=== PATIENT | female | born 1970 | race Caucasian/White ===

== ENCOUNTER → 2016-08-09 | Outpatient (CLI) | payer OTHER | LOC: EMI 08:46 | DX: M54.16 Radiculopathy, lumbar region (principal); R51 Headache; M51.36 Other intervertebral disc degeneration, lumbar region; M51.37 Other intervertebral disc degeneration, lumbosacral region | CPT/HCPCS: 70551; 72148 ==

== ENCOUNTER → 2020-08-01 | Outpatient (CLI) | payer OTHER ==
[~2020-08-01] MED LIST: ADMELOG100 UNIT/1 SC; ALBUTEROL0.63 MG/3 INH; ALDACTONE50 MG PO; AMOXICILLIN875 MG PO; BECLOMETHASONE INH; BENZONATATE200 MG PO; BROVANA15 MCG/2 M INH; BYDUREON P2 MG/0.65 SC; CALCIUM 600 +1 EAC3 PO; CEFDINIR300 MG PO; CETIRIZINE HCL10 MG PO; CLARITIN10 M2 PO; CLARITIN10 MG PO; CYCLOBENZAPRINE10 MG PO; DITROPAN 5 MG TA5 MG PO; DOCUSATE SODIU100 MG PO; DOXYCYCLINE MO100 MG PO; ECOTRIN81 MG PO; FERROUS GLUCON240 MG PO; FLEXERIL 10 MG10 MG PO; FLONASE 0.05% N16 GM; HUMULIN R500 UNIT/1 SC; HYDROCODONE-CH473 ML PO; HYDROXYZINE HCL10 MG PO; IPRAT-ALBUT 0.5-3 ML INH; ISOSORBIDE MONO30 MG PO; ISOSORBIDE MONO60 MG PO; K-DUR TAB 10 M10 MEQ PO; KENALOG CREAM 015 GM TOP; LANTUS INS100 UTS/M1 SC; LANTUS100 UNIT/1 SC; LASIX20 MG PO; LASIX40 MG PO; LEVAQUIN750 MG PO; LEVEMIR100 UNIT/1 SQ; LEVOCETIRIZINE D5 MG PO; LEVOFLOXACIN750 MG PO; LIPITOR80 MG PO; LOPRESSOR 25 MG25 MG PO; LYRICA100 MG PO; MYCOSTATIN100000 UTS PO; NEURONTIN 300300 MG PO; NITROSTAT0.4 MG SL; NORCO 5-325 TA1 EACH PO; OMEPRAZOLE40 MG PO; OMNICEF 300 MG300 MG PO; PHENERGAN 25 MG25 M1 PO; PREDNISONE 50 M50 MG PO; PREDNISONE10 MG PO; PREDNISONE20 MG PO; PROTONIX40 MG PO; PULMICORT0.5 MG/21 INH; QVAR INHALER INH; QVAR8.7 G1 INH; SINGULAIR10 MG PO; SYMBICORT 16010.2 GM INH; TESSALON PERLE100 MG PO; TRAZODONE HCL100 MG PO; TRAZODONE HCL50 MG PO; TRESIBA100 UNIT/1 SC; ULTRAM50 MG PO; VENTOLIN HFA 66.7 GM INH; VIBRAMYCIN100 MG PO; VITAMIN B-12100 MCG PO; VITAMIN D325 MCG PO; WELLBUTRIN SR100 MG PO; ZOFRAN ODT 4 MG4 MG PO; ZOFRAN ODT 4 MG4 MG SL; ZOFRAN4 MG PO
== END ==
LOC: EXRD 10:45
DX: M79.641 Pain in right hand (principal); M79.642 Pain in left hand
CPT/HCPCS: 73130

== ENCOUNTER → 2020-08-05 | Outpatient (CLI) | payer OTHER | LOC: EXRD 07:56 | DX: K74.60 Unspecified cirrhosis of liver (principal); R93.2 Abnormal findings on diagnostic imaging of liver and biliary tract; Z90.49 Acquired absence of other specified parts of digestive tract | CPT/HCPCS: 76705 ==

== ENCOUNTER → 2020-08-11 | Day surgery (SDC) | payer OTHER | END | disposition home or self-care (01) | LOC: OR 07:37 | PROVIDERS: Internal Medicine Gastroenterology | PROC: 0DJ08ZZ Inspection of Upper Intestinal Tract, Via Natural or Artificial Opening Endoscopic (ICD-10-PCS; principal; 2020-08-11 10:15) | DX: K74.60 Unspecified cirrhosis of liver (principal); I85.10 Secondary esophageal varices without bleeding; K76.6 Portal hypertension; K31.89 Other diseases of stomach and duodenum; K31.819 Angiodysplasia of stomach and duodenum without bleeding; K75.81 Nonalcoholic steatohepatitis (NASH); G89.29 Other chronic pain; I25.10 Atherosclerotic heart disease of native coronary artery without angina pectoris; I10 Essential (primary) hypertension; E78.5 Hyperlipidemia, unspecified; J44.9 Chronic obstructive pulmonary disease, unspecified; E78.00 Pure hypercholesterolemia, unspecified; E11.43 Type 2 diabetes mellitus with diabetic autonomic (poly)neuropathy; K31.84 Gastroparesis; E66.01 Morbid (severe) obesity due to excess calories; Z68.41 Body mass index [BMI] 40.0-44.9, adult; Z87.891 Personal history of nicotine dependence; Z88.1 Allergy status to other antibiotic agents; Z88.2 Allergy status to sulfonamides; Z86.010 Personal history of colon polyps; Z20.822 Contact with and (suspected) exposure to COVID-19; Z79.4 Long term (current) use of insulin; Z79.82 Long term (current) use of aspirin; Z79.891 Long term (current) use of opiate analgesic; Z79.899 Other long term (current) drug therapy | CPT/HCPCS: J2001; J2704; J7040 ==

== ENCOUNTER → 2020-09-01 | Outpatient (CLI) | payer OTHER | LOC: MAMO 14:14 | DX: Z12.31 Encounter for screening mammogram for malignant neoplasm of breast (principal) | CPT/HCPCS: 77063; 77067 ==

== ENCOUNTER 2020-09-03 20:42 | Emergency (ER) | payer OTHER ==
[~2020-09-03 20:42] MED LIST changes: -ALBUTEROL0.63 MG/3 INH; -ALDACTONE50 MG PO; -CEFDINIR300 MG PO; -CETIRIZINE HCL10 MG PO; -CLARITIN10 M2 PO; -CYCLOBENZAPRINE10 MG PO; -DOCUSATE SODIU100 MG PO; -DOXYCYCLINE MO100 MG PO; -FERROUS GLUCON240 MG PO; -HUMULIN R500 UNIT/1 SC; -ISOSORBIDE MONO30 MG PO; -ISOSORBIDE MONO60 MG PO; -KENALOG CREAM 015 GM TOP; -LANTUS INS100 UTS/M1 SC; -LASIX20 MG PO; -LEVOFLOXACIN750 MG PO; -LOPRESSOR 25 MG25 MG PO; -LYRICA100 MG PO; -OMNICEF 300 MG300 MG PO; -PREDNISONE 50 M50 MG PO; -SYMBICORT 16010.2 GM INH; -TESSALON PERLE100 MG PO; -TRAZODONE HCL50 MG PO; -ULTRAM50 MG PO; -VITAMIN B-12100 MCG PO; -VITAMIN D325 MCG PO; -ZOFRAN ODT 4 MG4 MG PO; -ZOFRAN ODT 4 MG4 MG SL
[2020-09-03 22:16] LABS: RED BLOOD COUNT 4.89 M/UL (4.00-5.10); WHITE BLOOD COUNT 6.8 K/UL (4.5-11.0)
[2020-09-03 22:39] LABS: BUN/CREATININE RATIO 11 (0-10)
[2020-09-04] MEDS ORDERED: DOXYCYCLINE MO100 MG PO (02:46)
[2020-09-04] MEDS ORDERED: PREDNISONE 50 M50 MG PO (02:46)
[2020-09-04] MEDS ORDERED: VENTOLIN HFA 66.7 GM INH (02:46)
== END 2020-09-04 03:00 | disposition home or self-care (01) ==
LOC: ER1 20:42
PROVIDERS: Physician Assistant
DX: J44.0 Chronic obstructive pulmonary disease with (acute) lower respiratory infection (principal); J20.9 Acute bronchitis, unspecified; J44.1 Chronic obstructive pulmonary disease with (acute) exacerbation; E11.9 Type 2 diabetes mellitus without complications; Z20.822 Contact with and (suspected) exposure to COVID-19; Z88.2 Allergy status to sulfonamides; Z88.1 Allergy status to other antibiotic agents; Z90.49 Acquired absence of other specified parts of digestive tract
CPT/HCPCS: 0240U; 36600; 71045; 80053; 81001; 82550; 82553; 82803; 83605; 83735; 83880; 84100; 84484; 85025; 85610; 85652; 85730; 86140; 87040; 87086; 93005; 96374; 99285; J1885; J7030

== ENCOUNTER 2020-11-28 16:38 | Emergency (ER) | payer OTHER ==
[~2020-11-28 16:38] MED LIST changes: +DOXYCYCLINE MO100 MG PO; +PREDNISONE 50 M50 MG PO
[2020-11-28 17:45] LABS: HEMOGLOBIN 9.8 gm/dl (12.3-15.3); RED BLOOD COUNT 4.33 M/UL (4.00-5.10); WHITE BLOOD COUNT 8.2 K/UL (4.5-11.0)
[2020-11-28 18:04] LABS: BUN/CREATININE RATIO 10 (0-10)
[2020-11-28] MEDS ORDERED: ZOFRAN ODT 4 MG4 MG SL (23:32)
[2020-11-28] MEDS ORDERED: OMNICEF 300 MG300 MG PO (23:32)
[2020-11-29 09:36] LABS: ACINETOBACTER BAUMANNII Not Detected (Negative); CANDIDA ALBICANS Not Detected (Negative); CANDIDA KRUSEI Not Detected (Negative); CANDIDA TROPICALIS Not Detected (Negative); ENTEROCOCCUS Not Detected (Negative); HAEMOPHILUS INFLUENZAE Not Detected (Negative); KLEBSIELLA OXYTOCA Not Detected (Negative); KLEBSIELLA PNEUMONIAE Not Detected (Negative); KPC-CARBAPENEM-RESISTANCE GENE Not Detected (Negative); PROTEUS Not Detected (Negative); PSEUDOMONAS AERUGINOSA Not Detected (Negative); SERRATIA MARCESANS Not Detected (Negative); STAPHYLOCOCCUS Not Detected (Negative); STAPHYLOCOCCUS AUREUS Not Detected (Negative); STREP AGALACTIAE (GROUP B) Not Detected (Negative); STREP PYOGENES (GROUP A) Not Detected (Negative); STREPTOCOCCUS Not Detected (Negative); mecA (METHICILLIN RESIST GENE Not Detected (Negative); vanA/B (VANCOMYCIN RESIST GENE Not Detected (Negative)
[2020-11-29 11:21] LABS: ESCHERICHIA COLI DETECTED (Negative)
[2020-11-29] MEDS ORDERED: FERROUS GLUCON240 MG PO (22:43)
[2020-11-29] MEDS ORDERED: CLARITIN10 M2 PO (22:43)
[2020-11-29] MEDS ORDERED: TESSALON PERLE100 MG PO (22:44)
[2020-11-29] MEDS ORDERED: DOCUSATE SODIU100 MG PO (22:50)
[2020-11-29] MEDS ORDERED: FLONASE 0.05% N16 GM (22:55)
[2020-11-29] MEDS ORDERED: SYMBICORT 16010.2 GM INH (22:57)
== END 2020-11-28 23:40 | disposition home or self-care (01) ==
LOC: ER1 16:38
PROVIDERS: Emergency Medicine; Physician Assistant
DX: N12 Tubulo-interstitial nephritis, not specified as acute or chronic (principal); E78.5 Hyperlipidemia, unspecified; E11.9 Type 2 diabetes mellitus without complications; I11.0 Hypertensive heart disease with heart failure; I50.9 Heart failure, unspecified; Z20.822 Contact with and (suspected) exposure to COVID-19
CPT/HCPCS: 0240U; 71045; 80053; 81001; 82550; 82553; 83605; 83690; 83735; 83874; 84484; 85025; 87040; 87086; 87150; 93005; J0696; J7040; Q9967

== ENCOUNTER 2020-11-29 14:22 | Inpatient (IN) | payer OTHER ==
[~2020-11-29] VITALS: Ht 157.5 cm; Wt 101.6 kg
[~2020-11-29 14:22] MED LIST changes: +OMNICEF 300 MG300 MG PO; +ZOFRAN ODT 4 MG4 MG SL
[2020-11-29 16:48] LABS: HEMOGLOBIN 10.2 gm/dl (12.3-15.3); RED BLOOD COUNT 4.63 M/UL (4.00-5.10)
[2020-11-29 17:08] LABS: BUN/CREATININE RATIO 10 (0-10)
[2020-11-29] MEDS ORDERED: FERROUS GLUCON240 MG PO (22:43)
[2020-11-29] MEDS ORDERED: CLARITIN10 M2 PO (22:43)
[2020-11-29] MEDS ORDERED: TESSALON PERLE100 MG PO (22:44)
[2020-11-29] MEDS ORDERED: DOCUSATE SODIU100 MG PO (22:50)
[2020-11-29] MEDS ORDERED: FLONASE 0.05% N16 GM (22:55)
[2020-11-29] MEDS ORDERED: SYMBICORT 16010.2 GM INH (22:57)
[2020-11-30 06:55] LABS: BUN/CREATININE RATIO 9 (0-10)
[2020-11-30] MEDS ORDERED: LYRICA100 MG PO (07:10)
[2020-11-30] MEDS ORDERED: ISOSORBIDE MONO60 MG PO (07:11)
[2020-11-30] MEDS ORDERED: VITAMIN D325 MCG PO (07:12)
[2020-11-30] MEDS ORDERED: LASIX20 MG PO (07:13)
[2020-11-30] MEDS ORDERED: HYDROXYZINE HCL10 MG PO ×2 (07:14→15:11)
[2020-11-30] MEDS ORDERED: CYCLOBENZAPRINE10 MG PO (09:29)
[2020-11-30] MEDS ORDERED: ZOFRAN ODT 4 MG4 MG PO (14:59)
[2020-11-30] MEDS ORDERED: CETIRIZINE HCL10 MG PO (15:00)
[2020-11-30] MEDS ORDERED: CEFDINIR300 MG PO (15:00)
[2020-11-30] MEDS ORDERED: KENALOG CREAM 015 GM TOP (15:21)
[2020-11-30] MEDS ORDERED: ALBUTEROL0.63 MG/3 INH (15:23)
[2020-11-30] MEDS ORDERED: ALDACTONE50 MG PO (17:33)
[2020-11-30] MEDS ORDERED: TRAZODONE HCL50 MG PO (17:34)
[2020-11-30] MEDS ORDERED: VITAMIN B-12100 MCG PO (17:36)
[2020-11-30] MEDS ORDERED: LOPRESSOR 25 MG25 MG PO (22:49)
[2020-11-30] MEDS ORDERED: ULTRAM50 MG PO (22:52)
[2020-11-30] MEDS ORDERED: ISOSORBIDE MONO30 MG PO (22:54)
[2020-11-30] MEDS ORDERED: HUMULIN R500 UNIT/1 SC (23:00)
[2020-12-02 03:56] LABS: HEMOGLOBIN 9.2 gm/dl (12.3-15.3); RED BLOOD COUNT 4.2 M/UL (4.00-5.10); WHITE BLOOD COUNT 4.3 K/UL (4.5-11.0)
[2020-12-02 04:26] LABS: BUN/CREATININE RATIO 7 (0-10)
[2020-12-02] MEDS ORDERED: LEVOFLOXACIN750 MG PO (11:22)
[2020-12-02] MEDS ORDERED: LANTUS INS100 UTS/M1 SC (12:11)
== END 2020-12-02 13:15 | disposition home or self-care (01) | DRG 871 ==
LOC: ER1 14:22 → MED SURG 4 18:18 → CDU 18:18 → MED SURG 4 22:03
PROVIDERS: Nurse Practitioner; ADMIT Internal Medicine
DX: A41.51 Sepsis due to Escherichia coli [E. coli] (principal); J18.9 Pneumonia, unspecified organism; N10 Acute pyelonephritis; J44.0 Chronic obstructive pulmonary disease with (acute) lower respiratory infection; Z68.41 Body mass index [BMI] 40.0-44.9, adult; E11.9 Type 2 diabetes mellitus without complications; K21.9 Gastro-esophageal reflux disease without esophagitis; Z20.822 Contact with and (suspected) exposure to COVID-19; I50.9 Heart failure, unspecified; I11.0 Hypertensive heart disease with heart failure; K74.60 Unspecified cirrhosis of liver; D69.6 Thrombocytopenia, unspecified; I25.10 Atherosclerotic heart disease of native coronary artery without angina pectoris; K76.9 Liver disease, unspecified; E66.01 Morbid (severe) obesity due to excess calories; K31.84 Gastroparesis; Z79.4 Long term (current) use of insulin; Z90.710 Acquired absence of both cervix and uterus; Z90.49 Acquired absence of other specified parts of digestive tract; Z87.891 Personal history of nicotine dependence
CPT/HCPCS: 0240U; 36415; 71045; 80048; 80053; 81001; 82550; 82553; 82962; 83605; 83690; 83735; 83874; 84484; 85025; 87040; 87077; 87086; 87150; 87186; 93005; 94640; 94664; 94760; 96365; 96374; 99284; J0696; J1956; J7040; Q9967; U0002

== ENCOUNTER → 2020-12-27 | Outpatient (CLI) | payer OTHER ==
[~2020-12-27] MED LIST changes: +ALBUTEROL0.63 MG/3 INH; +ALDACTONE50 MG PO; +CEFDINIR300 MG PO; +CETIRIZINE HCL10 MG PO; +CLARITIN10 M2 PO; +CYCLOBENZAPRINE10 MG PO; +DOCUSATE SODIU100 MG PO; +FERROUS GLUCON240 MG PO; +HUMULIN R500 UNIT/1 SC; +ISOSORBIDE MONO30 MG PO; +ISOSORBIDE MONO60 MG PO; +KENALOG CREAM 015 GM TOP; +LANTUS INS100 UTS/M1 SC; +LASIX20 MG PO; +LEVOFLOXACIN750 MG PO; +LOPRESSOR 25 MG25 MG PO; +LYRICA100 MG PO; +SYMBICORT 16010.2 GM INH; +TESSALON PERLE100 MG PO; +TRAZODONE HCL50 MG PO; +ULTRAM50 MG PO; +VITAMIN B-12100 MCG PO; +VITAMIN D325 MCG PO; +ZOFRAN ODT 4 MG4 MG PO
== END ==
LOC: MRI 07:12
DX: K76.9 Liver disease, unspecified (principal)
CPT/HCPCS: 74183; A9577

== ENCOUNTER → 2021-01-20 | Outpatient (CLI) | payer OTHER ==
[2021-01-20 12:46] LABS: HEMOGLOBIN 10.7 gm/dl (12.3-15.3); RED BLOOD COUNT 4.93 M/UL (4.00-5.10); WHITE BLOOD COUNT 6.2 K/UL (4.5-11.0)
[2021-01-20 13:16] LABS: BUN/CREATININE RATIO 9 (0-10)
== END ==
LOC: LAB 11:47
PROVIDERS: Family Medicine
DX: J18.9 Pneumonia, unspecified organism (principal); N12 Tubulo-interstitial nephritis, not specified as acute or chronic; E53.8 Deficiency of other specified B group vitamins; E78.5 Hyperlipidemia, unspecified; D50.9 Iron deficiency anemia, unspecified; K74.60 Unspecified cirrhosis of liver; K76.9 Liver disease, unspecified
CPT/HCPCS: 36415; 71046; 80053; 80061; 81001; 82105; 82607; 82728; 83540; 83550; 85027; 85045; 87086

== ENCOUNTER → 2021-07-03 | Outpatient (CLI) | payer OTHER ==
[2021-07-03 13:59] LABS: BUN/CREATININE RATIO 9 (0-10)
== END ==
LOC: LAB 12:07
PROVIDERS: Internal Medicine Gastroenterology
DX: K74.60 Unspecified cirrhosis of liver (principal)
CPT/HCPCS: 36415; 80048

== ENCOUNTER → 2021-07-31 | Outpatient (CLI) | payer OTHER ==
[2021-07-31 11:28] LABS: BUN/CREATININE RATIO 13 (0-10)
== END ==
LOC: LAB 10:28
PROVIDERS: Internal Medicine Gastroenterology
DX: C22.0 Liver cell carcinoma (principal); R18.8 Other ascites
CPT/HCPCS: 36415; 80048; 80076

== ENCOUNTER → 2021-09-14 | Outpatient (CLI) | payer OTHER ==
[2021-09-14 15:17] LABS: HEMOGLOBIN 14.8 gm/dl (12.3-15.3); RED BLOOD COUNT 4.79 M/UL (4.00-5.10); WHITE BLOOD COUNT 5.8 K/UL (4.5-11.0)
[2021-09-14 15:24] LABS: BUN/CREATININE RATIO 9 (0-10)
== END ==
LOC: LAB 13:44
PROVIDERS: Family Medicine
DX: R60.9 Edema, unspecified (principal); D50.9 Iron deficiency anemia, unspecified; E55.9 Vitamin D deficiency, unspecified; E78.5 Hyperlipidemia, unspecified; E53.8 Deficiency of other specified B group vitamins
CPT/HCPCS: 36415; 71046; 80053; 80061; 82607; 82728; 83540; 83550; 83735; 85025; 85045

== ENCOUNTER → 2021-09-28 | Outpatient (CLI) | payer OTHER ==
[2021-09-28 15:06] LABS: RED BLOOD COUNT 4.76 M/UL (4.00-5.10)
== END ==
LOC: MAMO 11:30
PROVIDERS: Allergy & Immunology
DX: Z12.31 Encounter for screening mammogram for malignant neoplasm of breast (principal); J30.1 Allergic rhinitis due to pollen; J30.89 Other allergic rhinitis; H10.45 Other chronic allergic conjunctivitis; J34.2 Deviated nasal septum; J31.0 Chronic rhinitis; J44.9 Chronic obstructive pulmonary disease, unspecified
CPT/HCPCS: 36415; 77063; 77067; 82785; 85025

== ENCOUNTER 2021-11-20 13:11 | Emergency (ER) | payer OTHER ==
[~2021-11-20 13:11] MED LIST changes: -HUMULIN R500 UNIT/1 SC; +HUMULIN R500 UNIT/1 SQ; -LASIX20 MG PO; -WELLBUTRIN SR100 MG PO; +WELLBUTRIN SR150 MG PO
[2021-11-20 13:59] LABS: HEMOGLOBIN 15.6 gm/dl (12.3-15.3); RED BLOOD COUNT 4.92 M/UL (4.00-5.10); WHITE BLOOD COUNT 4.7 K/UL (4.5-11.0)
[2021-11-20 15:41] LABS: BUN/CREATININE RATIO 9 (0-10)
[2021-11-20] MEDS ORDERED: LEVOFLOXACIN750 MG PO (17:55)
[2021-11-21 08:27] LABS: CANDIDA ALBICANS Not Detected (Negative); CANDIDA KRUSEI Not Detected (Negative); CANDIDA TROPICALIS Not Detected (Negative); HAEMOPHILUS INFLUENZAE Not Detected (Negative); KLEBSIELLA OXYTOCA Not Detected (Negative); KLEBSIELLA PNEUMONIAE Not Detected (Negative); KPC-CARBAPENEM-RESISTANCE GENE Not Detected (Negative); PROTEUS Not Detected (Negative); PSEUDOMONAS AERUGINOSA Not Detected (Negative); SERRATIA MARCESANS Not Detected (Negative); STAPHYLOCOCCUS Not Detected (Negative); STAPHYLOCOCCUS AUREUS Not Detected (Negative); STREP AGALACTIAE (GROUP B) Not Detected (Negative); STREP PYOGENES (GROUP A) Not Detected (Negative); STREPTOCOCCUS Not Detected (Negative); vanA/B (VANCOMYCIN RESIST GENE Not Detected (Negative)
[2021-11-21 08:31] LABS: ESCHERICHIA COLI DETECTED (Negative)
[2021-11-21] MEDS ORDERED: ISOSORBIDE MON120 MG PO (13:09)
[2021-11-21] MEDS ORDERED: PROAIR HFA8.5 GM INH (13:09)
[2021-11-21] MEDS ORDERED: DULERA 200 MCG8.8 GM INH (13:10)
[2021-11-21] MEDS ORDERED: METOPROLOL TART25 MG PO (13:12)
[2021-11-21] MEDS ORDERED: LORATADINE10 MG PO (13:12)
[2021-11-21] MEDS ORDERED: IPRAT-ALBUT 0.5-3 ML INH (13:15)
== END 2021-11-20 19:00 | disposition home or self-care (01) ==
LOC: ER1 13:11
PROVIDERS: Emergency Medicine; Physician Assistant Medical
DX: N12 Tubulo-interstitial nephritis, not specified as acute or chronic (principal); E11.9 Type 2 diabetes mellitus without complications; J44.9 Chronic obstructive pulmonary disease, unspecified; I10 Essential (primary) hypertension; I25.10 Atherosclerotic heart disease of native coronary artery without angina pectoris; Z88.2 Allergy status to sulfonamides
CPT/HCPCS: 80053; 81001; 83605; 85025; 87040; 87077; 87150; 87186; 96374; 96375; 99284; J0696; J1885; J1956; J2405; Q9967

== ENCOUNTER 2021-11-21 10:43 | Inpatient (IN) | payer OTHER ==
[~2021-11-21] VITALS: Ht 157.5 cm; Wt 117.9 kg
[2021-11-21 11:53] LABS: HEMOGLOBIN 13.7 gm/dl (12.3-15.3)
[2021-11-21 11:54] LABS: RED BLOOD COUNT 4.42 M/UL (4.00-5.10); WHITE BLOOD COUNT 6.7 K/UL (4.5-11.0)
[2021-11-21 12:24] LABS: BUN/CREATININE RATIO 13 (0-10)
[2021-11-21] MEDS ORDERED: ISOSORBIDE MON120 MG PO (13:09)
[2021-11-21] MEDS ORDERED: PROAIR HFA8.5 GM INH (13:09)
[2021-11-21] MEDS ORDERED: DULERA 200 MCG8.8 GM INH (13:10)
[2021-11-21] MEDS ORDERED: METOPROLOL TART25 MG PO (13:12)
[2021-11-21] MEDS ORDERED: LORATADINE10 MG PO (13:12)
[2021-11-21] MEDS ORDERED: IPRAT-ALBUT 0.5-3 ML INH (13:15)
[2021-11-22 06:35] LABS: HEMOGLOBIN 13.2 gm/dl (12.3-15.3); RED BLOOD COUNT 4.29 M/UL (4.00-5.10); WHITE BLOOD COUNT 5.2 K/UL (4.5-11.0)
[2021-11-22 14:06] LABS: BUN/CREATININE RATIO 13 (0-10)
[2021-11-23 06:44] LABS: RED BLOOD COUNT 4.56 M/UL (4.00-5.10); WHITE BLOOD COUNT 5.4 K/UL (4.5-11.0)
[2021-11-23 07:10] LABS: BUN/CREATININE RATIO 13 (0-10)
[2021-11-23] MEDS ORDERED: LEVOFLOXACIN750 MG PO (12:00)
[2021-11-23] MEDS ORDERED: ACYCLOVIR30 GM TOP (12:00)
== END 2021-11-23 17:20 | disposition home health service (06) | DRG 690 ==
LOC: ER1 10:43 → MED SURG 4 11:24 → CDU 11:24 → MED SURG 4 15:41
PROVIDERS: Physician Assistant Medical; ADMIT Internal Medicine
PROC: B24BZZZ Ultrasonography of Heart with Aorta (ICD-10-PCS; principal; 2021-11-22)
DX: N13.6 Pyonephrosis (principal); I50.22 Chronic systolic (congestive) heart failure; K76.6 Portal hypertension; I47.2 Ventricular tachycardia; Z68.42 Body mass index [BMI] 45.0-49.9, adult; B96.20 Unspecified Escherichia coli [E. coli] as the cause of diseases classified elsewhere; D69.6 Thrombocytopenia, unspecified; I50.9 Heart failure, unspecified; I11.0 Hypertensive heart disease with heart failure; K74.60 Unspecified cirrhosis of liver; J44.9 Chronic obstructive pulmonary disease, unspecified; K21.9 Gastro-esophageal reflux disease without esophagitis; R16.1 Splenomegaly, not elsewhere classified; B00.1 Herpesviral vesicular dermatitis; K31.84 Gastroparesis; J45.909 Unspecified asthma, uncomplicated; E66.01 Morbid (severe) obesity due to excess calories; E11.43 Type 2 diabetes mellitus with diabetic autonomic (poly)neuropathy; Z79.4 Long term (current) use of insulin; Z90.710 Acquired absence of both cervix and uterus; Z90.49 Acquired absence of other specified parts of digestive tract; Z87.891 Personal history of nicotine dependence; Z83.3 Family history of diabetes mellitus; Z88.2 Allergy status to sulfonamides; Z88.8 Allergy status to other drugs, medicaments and biological substances; Z87.11 Personal history of peptic ulcer disease; Z98.890 Other specified postprocedural states; Z79.82 Long term (current) use of aspirin; Z79.899 Other long term (current) drug therapy
CPT/HCPCS: ECHO; 36415; 71045; 80048; 80053; 82962; 83605; 83735; 85025; 85027; 87040; 93005; 93306; 94760; 96374; 99284; C1751; J0696; J1335; J1956

== ENCOUNTER → 2022-02-19 | Outpatient (CLI) | payer OTHER ==
[~2022-02-19] MED LIST changes: +ACYCLOVIR30 GM TOP; +DULERA 200 MCG8.8 GM INH; +ISOSORBIDE MON120 MG PO; +LORATADINE10 MG PO; +METOPROLOL TART25 MG PO; +PROAIR HFA8.5 GM INH
[2022-02-19 10:30] LABS: BUN/CREATININE RATIO 7 (0-10)
== END ==
LOC: LAB 09:54
PROVIDERS: Internal Medicine Gastroenterology
DX: K74.60 Unspecified cirrhosis of liver (principal)
CPT/HCPCS: 36415; 80048